=== PATIENT | male | born 1970 | race American Indian/Alaskan Native ===

== ENCOUNTER 2019-02-04 12:17 | Emergency (ER) | payer BC, OTHER ==
[2019-02-04 13:07] VITALS: BP 137/96
[2019-02-04] MEDS ORDERED: ASPIRIN PO ONE (13:07)
--- NOTE | 2019-02-04 13:08 | Event Note ---
ED Screening Note Date of service: 02/04/19 Time: 13:05 ED Screening Note: This is a 48 y.o. M. that presents to the ER with intermittent chest pain radiating to BUE x 2 days. Nonsmoker PMH of HTN & epilepsy This initial assessment/diagnostic orders/clinical plan/treatment(s) is/are subject to change based on patients health status, clinical progression and re- assessment by fellow clinical providers in the ED. Further treatment and workup at subsequent clinical providers discretion. Patient/guardian urged not to elope from the ED as their condition may be serious if not clinically assessed and managed. Initial orders include: Labs, EKG, and chest x-ray
[2019-02-04 13:35] LABS: Basophils % (Auto) 0.6 % (0.0-1.8); Eosinophils % (Auto) 1.5 % (0.0-4.3); Hematocrit 46.3 % (35.5-45.6); Hemoglobin 15.8 gm/dl (11.8-15.2); Lymphocytes # (Auto) 1.1 K/mm3 (1.2-5.4); Mean Corpuscular HGB Conc 34 % (32-34); Mean Corpuscular Volume 84 fl (84-94); Monocytes # (Auto) 0.3 K/mm3 (0.0-0.8); Monocytes % (Auto) 10.3 % (0.0-7.3); Platelet Count 192 K/mm3 (140-440); Red Blood Count 5.48 M/mm3 (3.65-5.03); Red Cell Distribution Width 13.1 % (13.2-15.2)
[2019-02-04 14:00] LABS: BUN/Creatinine Ratio 9; Blood Urea Nitrogen 9 mg/dL (9-20); Calcium 9.2 mg/dL (8.4-10.2); Hemolysis Index 9
--- NOTE | 2019-02-04 14:32 | Emergency Department Report ---
HPI - General Chief Complaint: Chest Pain Time Seen by Provider: 02/04/19 13:05 - HPI HPI: 48-year-old after [place] male presents to the emergency department for a few different complaints. First, the patient had some left-sided neck pain that radiated down his left arm that started 3 days ago, on Thursday evening. The pain worsened with certain movements of his head and neck. He denies any trauma. That resolved by Thursday. Secondly, the patient had some sharp left chest pain 2 nights ago, Thursday. At that time it was not associat ed with any nausea, vomiting, diaphoresis, shortness of breath. Once again he did not take anything and it resolved by the next morning. Patient also complained of some intermittent swelling around his ankles where he wears his steel toe boots. No skin color change or rash seen. No recent travel or sick contacts at home. No recent surgery, immobilization. Lastly, the patient had some sharp pains in his right bicep this afternoon. At the time of my examination, the patient is asymptomatic and all of these previous symptoms/complaints have resolved. He has a past medical history of epilepsy and hypertension. He denies any tobacco or illicit drug use. He follows up with [facility] for primary care. ED Past Medical Hx - Past Medical History Hx Hypertension: Yes Hx Seizures: Yes (epilepsy) - Social History Smoking Status: Never Smoker Substance Use Type: None - Medications Home Medications: Home Medications Medication Instructions Recorded Confirmed Last Taken Type Phenytoin [Dilantin] 200 mg PO BID #90 capsule 10/27/13 Unknown Rx carBAMazepine XR [TEGretol Xr] 400 mg PO BID #90 tablet 10/27/13 Unknown Rx ED Review of Systems ROS: Stated complaint: CHEST/L SIDE OF NECK/ARMS/FEET PAIN/ANKLES SWOLLEN Other details as noted in HPI Comment: All other systems reviewed and negative Constitutional: denies: chills, fever Eyes: denies: eye pain, vision change ENT: denies: ear pain, throat pain Respiratory: denies: cough, shortness of breath Cardiovascular: chest pain (resolved), edema (resolved, ankles and feet). denies: palpitations Gastrointestinal: denies: abdominal pain, vomiting Genitourinary: denies: dysuria, discharge Musculoskeletal: arthralgia (resolved), myalgia (resolved). denies: back pain Skin: denies: rash, lesions Neurological: denies: headache, weakness, numbness Physical Exam - Physical Exam Vital Signs: Vital Signs 02/04/19 13:06 Temperature 98.3 F Pulse Rate 63 Respiratory 16 Rate Blood Pressure 137/96 O2 Sat by Pulse 97 Oximetry Physical Exam: GENERAL: The patient is well-developed well-nourished. HENT: Normocephalic. Atraumatic. Patient has moist mucous membranes. EYES: Extraocular motions are intact. NECK: Supple. Trachea is midline. CHEST/LUNGS: Clear to auscultation. There is no respiratory distress noted. HEART/CARDIOVASCULAR: Regular. There is no tachycardia. There is no murmur. ABDOMEN: Abdomen is soft, nontender. Patient has normal bowel sounds. There is no abdominal distention. SKIN: Skin is warm and dry. NEURO: The patient is awake, alert, and oriented. The patient is cooperative. The patient has no focal neurologic deficits. The patient has normal speech. MUSCULOSKELETAL: There is no tenderness or deformity. There is no limitation range of motion. There is no evidence of acute injury. ED Course Vital Signs 02/04/19 13:06 Temperature 98.3 F Pulse Rate 63 Respiratory 16 Rate Blood Pressure 137/96 O2 Sat by Pulse 97 Oximetry ED Medical Decision Making - Lab Data Result diagrams: 02/04/19 13:15 02/04/19 13:15 - EKG Data -: EKG Interpreted by Me EKG shows normal: sinus rhythm, axis, intervals, QRS complexes, ST-T waves Rate: normal - EKG Data When compared to previous EKG there are: previous EKG unavailable Interpretation: normal EKG - Medical Decision Making The patient Presents with multiple different complaints that have been going on over the past few days. At the time of my examination he is asymptomatic. At first he had some left-sided neck pain with radiation down the left arm. Secondly, he had some sharp left-sided chest pain that occurred 2 nights ago but resolved without any intervention. Lastly, the patient had some right-sided pain in the bicep today. His EKG did not show any signs of ST elevation [place], ischemia or dysrhythmia. Labs were unremarkable including CBC, BMP and a negative troponin. His vital signs are stable throughout his ED course. The patient is low on the hard score and has not had any chest pain in close to 48 hours. The patient is asking for discharge home. He has been instructed to follow up with his primary care physician and has been given a referral for a local denitrator. He has also been instructed to return to the emergency department with any return of his chest pain, worsening of any previous symptoms, or with any acute distress. Critical Care Time: No Critical care attestation.: If time is entered above; I have spent that time in minutes in the direct care of this critically ill patient, excluding procedure time. ED Disposition Clinical Impression: Intermittent chest pain, History of hypertension Arm pain Qualifiers: Laterality: right Qualified Code(s): M79.601 - Pain in right arm Disposition: TO HOME OR SELFCARE Is pt being admited?: No Condition: Stable Instructions: Chest Pain (ED) Additional Instructions: Please return to the emergency department with any return of your chest pain, worsening of your symptoms, or with any acute distress. Please follow-up with your primary care physician at [facility]. I'm giving a referral for a local denitrator, Dr. Middleton, to follow up regarding your previous chest pain. Referrals: [facility] [Provider Group] - 2-3 Days DANO MIDDLETON MD [Staff Physician] - 2-3 Days Time of Disposition: 14:35 Heart Score - HEART Score History: Slightly suspicious EKG: Normal Age: 45-65 Risk factors: 1-2 risk factors Troponin: < normal limit HEART Score: 2 - Critical Actions Critical Actions: 0-3 pts:0.9-1.7%risk of adverse cardiac event.Candidate for discharge
== END 2019-02-04 14:43 | disposition home or self-care (01) ==
LOC: ED 12:17
DX: M79.601 Pain in right arm (principal); G40.909 Epilepsy, unspecified, not intractable, without status epilepticus; I10 Essential (primary) hypertension; M54.2 Cervicalgia
CPT/HCPCS: 36415; 80048; 84484; 85025; 93005; 93010; 99284

== ENCOUNTER 2019-07-12 16:56 | Emergency (ER) | payer OTHER ==
[2019-07-12] MEDS ORDERED: ACETAMINOPHEN 325 MG TAB ONE (18:52)
[2019-07-12] MEDS ORDERED: IBUPROFEN 600 MG TAB PO ONE ×2 (18:52→18:55)
[2019-07-12] MEDS ORDERED: TETANUS,DIPH,PERTUSS(ACELL) VACCINE 0.5 ML SYRINGE IM ONE ×2 (18:54→19:15)
--- NOTE | 2019-07-12 18:54 | Event Note ---
ED Screening Note ED Screening Note: fever that began yesterday generalized body aches did not take anything for a fever +dry cough rhinorrhea no n/v/d unsure of last tetanus immunization no known sick contacts states got cut yesterday with a nail to the right pointer finger did not stick in completely PMHx epilepsy takes Dilantin and Tegretol no allergies to meds Initial orders include: ibuprofen tylenol tetanus given
[2019-07-12] MEDS ORDERED: ACETAMINOPHEN 325 MG TAB PO ONE (18:55)
--- NOTE | 2019-07-12 19:00 | Emergency Department Report ---
ED General Adult HPI - General Chief complaint: Fever Stated complaint: FLU SX Time Seen by Provider: 07/12/19 18:47 Source: patient Mode of arrival: Ambulatory Limitations: No Limitations - History of Present Illness Initial comments: pt is a 48 yo male who presents to the ED with c/o fever that began yesterday. pt has associated generalized body aches, dry cough, rhinorrhea. did not take anything for a fever. no n/v/d, no abd pain, no CP, no SOB. pt states yesterday got cut with a nail. he is unsure of last tetanus immunization no known sick contacts. the nail did not stick in completely. states that it caused a scratch. has FROM and no pain. states he cleaned with peroxide at home yesterday. PMHx epilepsy takes Dilantin and Tegretol. no allergies to meds. - Related Data Previous Rx's Medication Instructions Recorded Last Taken Type Phenytoin [Dilantin] 200 mg PO BID #90 capsule 10/27/13 Unknown Rx carBAMazepine XR [TEGretol Xr] 400 mg PO BID #90 tablet 10/27/13 Unknown Rx Oseltamivir [Tamiflu] 75 mg PO BID 5 Days #10 cap 07/12/19 Unknown Rx Allergies Allergy/AdvReac Type Severity Reaction Status Date / Time No Known Allergies Allergy Verified 02/04/19 12:23 ED Review of Systems ROS: Stated complaint: FLU SX Other details as noted in HPI Comment: All other systems reviewed and negative ED Past Medical Hx - Past Medical History Hx Hypertension: Yes Hx Seizures: Yes (epilepsy) - Surgical History Past Surgical History?: No - Social History Smoking Status: Never Smoker Substance Use Type: None - Medications Home Medications: Home Medications Medication Instructions Recorded Confirmed Last Taken Type Phenytoin [Dilantin] 200 mg PO BID #90 capsule 10/27/13 Unknown Rx carBAMazepine XR [TEGretol Xr] 400 mg PO BID #90 tablet 10/27/13 Unknown Rx Oseltamivir [Tamiflu] 75 mg PO BID 5 Days #10 cap 07/12/19 Unknown Rx ED Physical Exam - General Limitations: No Limitations General appearance: alert, in no apparent distress - Head Head exam: Present: atraumatic, normocephalic - Eye Eye exam: Present: normal appearance - ENT ENT exam: Present: normal orophraynx, mucous membranes moist, TM's normal bilaterally, normal external ear exam - Respiratory Respiratory exam: Present: normal lung sounds bilaterally. Absent: respiratory distress, wheezes, rales, rhonchi, stridor, chest wall tenderness, accessory muscle use, decreased breath sounds, prolonged expiratory - Cardiovascular Cardiovascular Exam: Present: regular rate, normal rhythm, normal heart sounds. Absent: systolic murmur, diastolic murmur, rubs, gallop - Neurological Exam Neurological exam: Present: alert, oriented X3 - Psychiatric Psychiatric exam: Present: normal affect, normal mood - Skin Skin exam: Present: warm, dry, other (0.5 cm very superificial laceration to the right index finger on the palmar surface, clean, dry, intact, no signs of infection, no foreign body, only through the epidermis, well approximated) ED Course Vital Signs 07/12/19 07/12/19 17:17 20:49 Temperature 102.6 F H 98.8 F Pulse Rate 102 H 92 H Respiratory 18 20 Rate Blood Pressure 140/86 Blood Pressure 131/77 [Left] O2 Sat by Pulse 97 94 Oximetry ED Medical Decision Making - Lab Data Vital Signs 07/12/19 07/12/19 17:17 20:49 Temperature 102.6 F H 98.8 F Pulse Rate 102 H 92 H Respiratory 18 20 Rate Blood Pressure 140/86 Blood Pressure 131/77 [Left] O2 Sat by Pulse 97 94 Oximetry - Medical Decision Making pt is a 48 yo male who presents to the ED with c/o fever that began yesterday. pt has associated generalized body aches, dry cough, rhinorrhea. did not take anything for a fever. no n/v/d, no abd pain, no CP, no SOB. pt states yesterday got cut with a nail. he is unsure of last tetanus immunization no known sick contacts. the nail did not stick in completely. states that it caused a scratch. has FROM and no pain. states he cleaned with peroxide at home yesterday. PMHx epilepsy takes Dilantin and Tegretol. no allergies to meds. vitals with elevated HR and temp which improved upon tylenol and ibuprofen administration. on exam: 0.5 cm very superificial laceration to the right index finger on the palmar surface, clean, dry, intact, no signs of infection, no foreign body, only through the epidermis, well approximated, does not need to be closed, it is already approximated and closing. pt given tetanus immunization. pt has clinical s/sx of influenza. given prescription for tamiflu, advised that it would shorten symptoms by approximately one day. advised to please take medication as prescribed. increase your fluid intake over the next several days. may alternate tylenol then ibuprofen every 4 hours as needed for a fever. may take over the counter cough/cold medication. please keep area on your finger clean, dry, covered. may wash with soap and water and clean with peroxide three times a day. no hot tub, pool, or soaking in water. follow up with a primary care doctor in the next 2-3 days for reexamination. return to the emergency room for any new or worsening symptoms. - Differential Diagnosis influenza, URI, PNA, strep pharyngitis, otitis, viral syndrome Critical care attestation.: If time is entered above; I have spent that time in minutes in the direct care of this critically ill patient, excluding procedure time. ED Disposition Clinical Impression: Influenza, Superficial laceration Disposition: TO HOME OR SELFCARE Is pt being admited?: No Does the pt Need Aspirin: No Condition: Stable Instructions: Influenza (ED), Acute Wound Care (ED) Additional Instructions: please take medication as prescribed. increase your fluid intake over the next several days. may alternate tylenol then ibuprofen every 4 hours as needed for a fever. may take over the counter cough/cold medication. please keep area on your finger clean, dry, covered. may wash with soap and water and clean with peroxide three times a day. no hot tub, pool, or soaking in water. follow up with a primary care doctor in the next 2-3 days for reexamination. return to the emergency room for any new or worsening symptoms. Prescriptions: Oseltamivir [Tamiflu] 75 mg PO BID 5 Days #10 cap Referrals: NICOLAS ESCAMILLA MD [Staff Physician] - 2-3 Days [facility] [Outside] - 2-3 Days [facility] [Provider Group] - 2-3 Days [facility] [Outside] - 2-3 Days Forms: Work/School Release Form(ED) Time of Disposition: 20:01 Print Language: SETSWANA
[2019-07-12 20:51] VITALS: BP 131/77
== END 2019-07-12 20:49 | disposition home or self-care (01) ==
LOC: ED 16:56
DX: S61.210A Laceration without foreign body of right index finger without damage to nail, initial encounter (principal); J11.1 Influenza due to unidentified influenza virus with other respiratory manifestations; G40.909 Epilepsy, unspecified, not intractable, without status epilepticus; Z79.899 Other long term (current) drug therapy; W26.8XXA Contact with other sharp object(s), not elsewhere classified, initial encounter; Y93.89 Activity, other specified; Y92.89 Other specified places as the place of occurrence of the external cause; Y99.8 Other external cause status
CPT/HCPCS: 90471; 90715